=== PATIENT | female | born 1980 | race Caucasian/White ===

== ENCOUNTER 2016-11-16 04:44 | Emergency (ER) | payer BC ==
[2016-11-16 05:29] VITALS: RESP 16; O2SAT 99
[2016-11-16] MEDS ORDERED: SODIUM CHLORIDE 0.9% 1000 ML SOL IV SCH (05:30)
[2016-11-16 05:51] LABS: BASOPHILS % (AUTO) 1 % (0-3); EOSINOPHILS % (AUTO) 3 % (0-9); HEMATOCRIT 30 % (35-47); MEAN CORPUSCULAR HGB CONC 32.6 gm/dl (32.0-36.0); MONOCYTES % (AUTO) 7.4 % (0-12)
[2016-11-16 05:58] LABS: MEAN CORPUSCULAR VOLUME 67 fL (81-99)
[2016-11-16 05:59] LABS: ANISOCYTOSIS MODERATE; HYPOCHROMASIA PRESENT
[2016-11-16 06:00] LABS: OVALOCYTES PRESENT
[2016-11-16 06:10] LABS: ALBUMIN 3.4 gm/dl (3.4-5.0); CALCIUM 8.3 mg/dl (8.5-10.1); POTASSIUM 3.6 mMol/L (3.5-5.1); THYROID STIMULATING HORMONE 1.001 uU/ml (0.358-3.740)
[2016-11-16 06:38] LABS: APPEARANCE,URINE Clear; BILIRUBIN,URINE NEGATIVE (NEGATIVE); COLOR,URINE Yellow; GLUCOSE, URINE (UA) NEGATIVE (NEGATIVE); KETONES,URINE NEGATIVE (NEGATIVE); LEUKOCYTE ESTERASE ,URINE NEGATIVE (NEGATIVE); NITRATE,URINE NEGATIVE (NEGATIVE); OCCULT BLOOD,URINE NEGATIVE (NEG-TRACE); UROBILINOGEN,URINE 0.2 (0.2-1.0 EU)
[2016-11-16 06:42] VITALS: PULSE 80; TEMP 96.1
[2016-11-16 06:54] LABS: AMPHETAMINES NEGATIVE (NEGATIVE); METHADONE NEGATIVE (NEGATIVE); OPIATES(OP13) NEGATIVE (NEGATIVE); OXYCODONE(OXY) POSITIVE (NEGATIVE); PROPOXYPHENE(PPX) NEGATIVE (NEGATIVE); RBC,URINE NEGATIVE (0-3AV/HPF); TRICYCLIC ANTIDEPRESSANTS NEGATIVE (NEGATIVE); WBC,URINE NEGATIVE (0-5AV/HPF)
[2016-11-16 08:08] VITALS: BP 124/73
== END 2016-11-16 07:44 | disposition left against medical advice (07) | DRG 103 ==
LOC: ED 04:44
DX: R51 Headache (principal); R42 Dizziness and giddiness; R20.0 Anesthesia of skin
CPT/HCPCS: 36415; 70450; 80053; 80305; 81001; 83735; 84443; 85025; 99284